=== PATIENT | male | born 1990 | race Caucasian/White ===

== ENCOUNTER 2016-12-10 15:28 | Emergency (ER) | payer OTHER | END 2016-12-10 17:56 | disposition home or self-care (01) | LOC: ER 15:28 | DX: R20.2 Paresthesia of skin (principal); K92.9 Disease of digestive system, unspecified; F17.200 Nicotine dependence, unspecified, uncomplicated; Z79.899 Other long term (current) drug therapy | CPT/HCPCS: 36415 ==